=== PATIENT | male | born 2005 | race Caucasian/White ===

== ENCOUNTER 2024-09-28 14:22 | Emergency (ER) | payer MEDICAID, SELFPAY ==
[2024-09-28 14:41] VITALS: BP 149/92; PULSE 77; RESP 18; TEMP 36.8; O2SAT 99; BMI 23.4
--- NOTE | 2024-09-28 14:41 | EXP.UTC ---
Discharge Plan Disposition Patient Disposition: Home, Self-Care Condition: Good Prescriptions Prescriptions: New cyclobenzaprine 10 mg Tablet 10 mg PO BID PRN (Reason: Muscle Spasm) Qty: 20 0RF ibuprofen [IBU] 800 mg tablet 800 mg PO Q8HP PRN (Reason: Moderate Pain) Qty: 30 0RF Referrals Follow up/Referrals: Faraz Shannon [Primary Care Provider] - See instructions Activity Restrictions/Add. Instructions Additional Instructions/Restrictions: Go home and rest. It would be best if you rested tomorrow too. No heavy lifting & No twisting for the next few days. Take the oral medications as directed. The muscle relaxer (cyclobenzaprine--Flexeril) will make you drowsy, so don't drive or operate heavy machinery after taking it. Follow up with your regular doctor. GO TO THE ER FOR ANY WORSENING SYMPTOMS OR CONCERN, ESPECIALLY BOWEL OR BLADDER ISSUES, SADDLE AREA NUMBNESS, FEVER, ETC Clinical Impressions Clinical Impression: Low back pain, Fall Stand Alone Forms Stand Alone Forms: Work/School Release Instructions Patient Instructions: DI for Low Back Pain, Ibuprofen, Cyclobenzaprine Print Language Print Language: Hebrew Discharge ED Provider: Angel [facility] General Stated complaint: AO 09/26 1230 lower back pain Time Seen by Provider: 09/28/24 14:41 History of Present Illness Provider Complaint: He states that 2 days ago he slipped and fell backwards. He came down on his lower back and bottom. Since then he has had low back pain. He denies any bowel or bladder issues. He denies any numbness of his legs. He denies any other complaints or injury. Related Data Previous Rx's ?Medication ?Instructions ?Recorded cyclobenzaprine 10 mg tablet 10 mg PO BID PRN Muscle Spasm #20 09/28/24 tabs ibuprofen 800 mg tablet (IBU) 800 mg PO Q8HP PRN Moderate Pain 09/28/24 #30 tabs Allergies Allergy/AdvReac Type Severity Reaction Status Date / Time No Known Allergies Allergy Verified 09/28/24 14:46 [facility] Disclaimer: The information contained in this section may have been updated after the patient was seen, as this information can be updated by other users. Social History Smoking Status: Never smoker alcohol intake: never current occupational status: employed Travel in the last 8 weeks: None ROS Obtained: Yes All systems reviewed & no additional complaints except as documented Constitutional Constitutional: Denies chills, Denies fever(s), Denies headache(s) and Denies weakness Eyes Eyes: Denies eye discharge ENT Ears, Nose, Mouth, and Throat: Denies dizziness, Denies otalgia, Denies headache(s), Denies neck pain and Denies sore throat Cardiovascular Cardiovascular: Denies chest pain Respiratory Respiratory: Denies shortness of breath, Denies chest congestion, Denies cough, Denies stridor and Denies wheezing Gastrointestinal Gastrointestingal: Denies nausea or vomiting Musculoskeletal Musculoskeletal: Reports as per HPI, Denies abnormal gait, Reports back pain, Denies neck pain, Denies numbness and Denies tingling Integumentary/Breasts Skin/Breast: Denies rash Neurologic Neurologic: Denies abnormal gait, Denies dizziness, Denies focal weakness, Denies headache(s), Denies numbness, Denies paresthesias, Denies radicular pain, Denies sensory deficit, Denies tingling and Denies weakness Allergic/Immunologic Allergic/Immunologic: Denies wheezing Physical Exam General General appearance: alert and in no apparent distress Head Head exam: atraumatic, normocephalic and normal inspection Eye Eye exam: Present normal appearance, PERRL and EOMI ENT ENT exam: Present normal exam, normal oropharynx, mucous membranes moist, TM's normal bilaterally and normal external ear exam Neck Neck exam: Present normal inspection, full ROM and trachea midline; Absent meningismus or lymphadenopathy Chest Chest inspection: Present normal inspection and symmetric chest wall rise; Absent tenderness Respiratory Respiratory exam: Present normal lung sounds bilaterally; Absent respiratory distress Cardiovascular Cardiovascular exam: Present regular rate and normal rhythm; Absent JVD Abdominal Exam Abdominal exam: Present soft and normal bowel sounds; Absent distention, tenderness or guarding Extremities Exam Extremities exam: Present normal inspection, full ROM and normal capillary refill; Absent calf tenderness Back Exam Back exam: Present normal inspection and full ROM; Absent tenderness, CVA tenderness (R), CVA tenderness (L), muscle spasm, paraspinal tenderness, vertebral tenderness, rashes, sciatic notch tenderness (R), sciatic notch tenderness (L), straight leg raise (R) or straight leg raise (L) Neurological Exam Neurological exam: Present alert, oriented X3, CN II-XII intact, normal gait and reflexes normal; Absent motor sensory deficit Expanded Neurological Exam Speech: Present fluid speech Cranial nerves: Normal: EOM function (II, III, IV, ), facial sensation (V), facial palsy (VII), gag reflex (IX), spinal accessory function (XI) and tongue deviation (XII) Cerebellar function: Normal: heel to cisse Cerebellar function: normal gait Motor strength - LUE: 5/5 Motor strength - RUE: 5/5 Motor strength - LLE: 5/5 Motor strength - RLE: 5/5 Upper motor neuron exam: Normal: preston neglect and sensory extinction Sensory exam upper extremity: Normal: light touch and 2 point discrimination Sensory exam lower extremity: Normal: light touch and 2 point discrimination DTR: 2+: biceps (L), biceps (R), patellar (L), patellar (R), Achilles tendon (L) and Achilles tendon (R) Spinal cord function: Absent saddle anesthesia Psychiatric Psychiatric exam: Present normal affect and normal mood Skin Skin exam: Present warm, dry, intact and normal color Lymphatic Lymphatic Findings: no adenopathy Medical Decision Making Medical Records Medical records reviewed: No I reviewed the patient's medical records. Screening: Per USPSTF and CDC recommendations, given the prevalence of disease in our region, it is our hospital?s policy to screen for HIV and viral Hepatitis for all patients aged 18 and over and those with ongoing risk factors. Armen Inquiry Pt receiving controlled substance: No Radiology Data #1: Image(s): L-Spine Image Reviewed: Yes I reviewed the patient's radiology image and Yes I have reviewed radiologist's interpretation Preliminary Findings: No Fracture Seen Accession No. : [id number] Patient Name / ID : KATIE Emmanuel / [id number] Exam Date : 09/28/2024 15:05:03 ( Final ) Study Comment : Sex / Age : M / 19Y Creator : Miguelangel Fulton MD Dictator : Assembly Machine Offbearer : Marketing Information Analyst : Miguelangel Fulton MD Approver2 : Report Date : 09/28/2024 15:45:32 My Comment : FINAL REPORT CLINICAL HISTORY: fall, low back pain, coccyx pain COMPARISON: None FINDINGS: Three views of the lumbosacral spine were obtained. No fracture is identified. Disc spaces are well-preserved. Alignment is normal. IMPRESSION: Unremarkable lumbar spine series. Reviewed, Interpreted and Dictated by Nikhil Fulton MD Transcribed by Nusrat Nielson Authenticated and [facility]
--- NOTE | 2024-09-28 14:58 | XR_ITS ---
FINAL REPORT CLINICAL HISTORY: fall, low back pain, coccyx pain COMPARISON: None FINDINGS: Three views of the lumbosacral spine were obtained. No fracture is identified. Disc spaces are well-preserved. Alignment is normal. IMPRESSION: Unremarkable lumbar spine series. Reviewed, Interpreted and Dictated by Nikhil Fulton MD Transcribed by Nusrat Nielson Authenticated and [facility]
--- NOTE | 2024-09-28 14:58 | XR_ITS ---
FINAL REPORT CLINICAL HISTORY: fall, low back pain, coccyx pain COMPARISON: none FINDINGS: SACRUM COCCYX 2 views demonstrate no acute fracture or dislocation. The sacral arches are intact. The sacroiliac joints are unremarkable. No soft tissue abnormality is seen. IMPRESSION: No acute process. Reviewed, Interpreted and Dictated by Nikhil Fulton MD Transcribed by Nusrat Nielson Authenticated and [facility]
[2024-09-28 16:02] VITALS: BP 149/92; PULSE 77; RESP 18; TEMP 36.8
== END 2024-09-28 16:02 | disposition home or self-care (01) ==
PROVIDERS: Emergency Provider Nurse Practitioner Family; PCP Family Medicine
DX: M54.9 Dorsalgia, unspecified (principal)
CPT/HCPCS: 72100; 72220; 99213; G0381

== ENCOUNTER 2025-02-27 00:16 | Emergency (ER) | payer MEDICAID, SELFPAY ==
--- NOTE | 2025-02-27 00:16 | ECG_ITS ---
APPROVED REPORT Exam: Resting ECG HR:107 bpm ECG Measurements Heart Rate 107 AXES IL 144 P 61 QRSd 97 QRS 77 QT 319 T 62 QTc 382 Conclusion SINUS TACHYCARDIA POSSIBLE RIGHT VENTRICULAR CONDUCTION DELAY [RSR (QR) IN V1/V2] No STEMI Electronically signed by : TOSHIA PALOMARES, 02/28/2025 07:13:42
[2025-02-27 00:19] VITALS: BP 122/76; PULSE 99; RESP 18; TEMP 36.7; O2SAT 100; BMI 25.1
--- NOTE | 2025-02-27 00:28 | XR_ITS ---
PROCEDURE INFORMATION: Exam: XR Chest Exam date and time: 02/27/2025 12:38 AM Age: 20 years old Clinical indication: Pain; Chest pressure; Additional info: Chest pressure anxiety recently stopped caffeine TECHNIQUE: Imaging protocol: Radiologic exam of the chest. Views: 2 views. Total images: 2 COMPARISON: No relevant prior studies available. FINDINGS: Tubes, catheters and devices: EKG leads are present. Lungs: Nonspecific hyperinflation. No consolidation. No pulmonary vascular congestion or edema. Pleural spaces: Unremarkable. No pleural effusion. No pneumothorax. Heart/Mediastinum: Unremarkable. No cardiomegaly. No mediastinal widening or hilar enlargement. Bones/joints: Remote deformity distal right clavicle, status post ORIF. Minor degenerative changes midthoracic spine. IMPRESSION: 1. No radiographically acute cardiopulmonary process. 2. Nonspecific hyperinflation.
[2025-02-27 00:30] VITALS: BP 106/77; PULSE 87; RESP 11; O2SAT 99
[2025-02-27 00:34] LABS: Basophils # 0.1 K/mm3 (0-0.2); Basophils % 0.7 % (0.1-2.0); Eosinophils # 0.4 Kmm3 (0.0-0.4); Eosinophils % 3.5 % (0.1-12.0); Hematocrit 45.7 % (42.0-52.0); Hemoglobin 15.5 g/dL (14.1-18.0); Immature Granulocytes # 0.03 10^3uL; Immature Granulocytes % 0.3 %; Lymphocytes # 4.6 K/mm3 (0.7-4.5); Lymphocytes % 43.5 % (10-50); Mean Corpuscular HGB Conc 33.9 g/dL (31.8-35.4); Mean Corpuscular Hemoglobin 32.4 pg (27.0-31.2); Mean Corpuscular Volume 95.4 fl (80-94); Mean Platelet Volume 9.7 fl (7.4-10.4); Monocytes # 0.8 K/mm3 (0.1-1.0); Monocytes % 7.6 % (1.7-9.3); Neutrophils # 4.7 K/mm3 (1.8-7.8); Neutrophils % 44.4 % (37.0-80.0); Nucleated Red Blood Cells # 0 10^3/uL; Nucleated Red Blood Cells % 0 %; Platelet Count 258 K/mm3 (142-424); Red Blood Count 4.79 M/mm3 (4.60-6.20); Red Cell Distribution Width 12.6 % (11.5-17.5); Red Cell Distribution Width-SD 44.7 fL; White Blood Count 10.6 K/mm3 (4.8-10.8)
--- NOTE | 2025-02-27 00:34 | ED_ITS ---
Discharge Plan Disposition Patient Disposition: Home, Self-Care Condition: Good Prescriptions Prescriptions: No Action cyclobenzaprine 10 mg Tablet 10 mg PO BID PRN (Reason: Muscle Spasm) Qty: 20 0RF ibuprofen [IBU] 800 mg tablet 800 mg PO Q8HP PRN (Reason: Moderate Pain) Qty: 30 0RF Referrals Follow up/Referrals: Provider,Referral, [Primary Care Provider, Medical] - See instructions Activity Restrictions/Add. Instructions Additional Instructions/Restrictions: You were evaluated in the ER and are appropriate for discharge at this time. Call the cardiology office to make an appointment for outpatient follow-up in the next few days. Drink plenty of fluids but as discussed avoid caffeine. Also avoid alcohol. As discussed I recommend stopping nicotine products and smoking sooner rather than later for your overall health and wellbeing. I recommend avoiding all illicit substances. Follow-up with your primary care doctor. Return to the ER with any new, worsening, or otherwise concerning symptoms. Clinical Impressions Clinical Impression: Chest pain, Anxiety, Tobacco user Print Language Print Language: Sami Discharge ED Provider: Sherry Cardenas General Chief Complaint: Chest Pain Stated Complaint: chest pain Time Seen by Provider: 02/27/25 00:27 Mode of Arrival: Ambulatory Source of Information: Patient Description of Symptoms (Recalled from ER Triage Doc. by RN): 20M to ED with c/o chest pain X2 weeks. Pt reports his pain has been unbearable today, so he came to the ED tonight. Pt reports he was drinking energy drinks everyday but quit 1wk ago because they were making his chest hurt. Pt reports pain is 3/10, pressure in the left chest. Pt also reports numbness in the left hand. Pt took asa 81mg @1500 today, and shortly before arrival to ED. Pt reports the medication helped with his pain. History of Present Illness HPI narrative: Otherwise healthy 20-year-old male presents to the ER complaining of 2 weeks of chest pain. Patient states pain has been worse today so he came to the ER this evening to get checked out. Patient reports he was drinking red bowls every day for multiple years but quit 2 weeks ago because he started having weird chest complaints. He states for about a week he had headache but that went away but states he has continued to have chest pressure for the last 2 weeks. He reports the pressure sensation is also in his left upper extremity. He states he took aspirin around 3 PM today and then also prior to arrival in the ER. He states the aspirin does relieve his symptoms. He does not report any personal cardiac history, he states he smokes cigarettes and his smoking has increased since stopping caffeine but he does not use any marijuana or other illicit drugs. Patient denies any dizziness or nausea or vomiting. He has no pain anywhere, just the left-sided chest pressure. No history of blood clot. Related Data Previous Rx's ?Medication ?Instructions ?Recorded cyclobenzaprine 10 mg tablet 10 mg PO BID PRN Muscle S pasm #20 09/28/24 tabs ibuprofen 800 mg tablet (IBU) 800 mg PO Q8HP PRN Moder ate Pain 09/28/24 #30 tabs Allergies Allergy/AdvReac Type Severity Reaction Status Date / Time No Known Allergies Allergy Verified 09/28/24 14:46 [facility] Disclaimer: The information contained in this section may have been updated after the patient was seen, as this information can be updated by other users. Social History (Updated 09/28/24 @ 20:29 by Angel Gonzales APRN) Smoking Status: Current every day smoker alcohol intake: never current occupational status: employed Travel in the last 8 weeks?: None ROS Obtained: Yes Systems reviewed as appropriate & no additional complaints except as documented per HPI Physical Exam General General appearance: alert and in no apparent distress Comment: Anxious but not in distress Head Head exam: atraumatic and normocephalic Eye Eye exam: Present PERRL and EOMI ENT ENT exam: Present mucous membranes moist Neck Neck exam: Present normal inspection and full ROM Chest Chest inspection: Present symmetric chest wall rise; Absent tenderness Respiratory Respiratory exam: Present normal lung sounds bilaterally; Absent respiratory distress, wheezes or stridor Cardiovascular Cardiovascular exam: Present regular rate (Heart rate 91 during exam) and normal rhythm Abdominal Exam Abdominal exam: Present soft; Absent distention or tenderness Extremities Exam Extremities exam: Present full ROM; Absent edema Neurological Exam Neurological exam: Present alert and oriented X3; Absent motor sensory deficit Psychiatric Psychiatric exam: Present anxious (But not agitated. Able to be redirected) Skin Skin exam: Present warm and dry HEART Score HEART Score HEART Score assessment performed?: Yes History (anamnesis): Slightly suspicious ECG: Normal Age: <45 years Risk factors: 1-2 risk factors Troponin: </= normal limit HEART Score: 1 Critical Care Critical Care Time Critical Care Time: No Medical Decision Making Medical Records Medical records reviewed: Yes I reviewed the patient's medical records. Armen Inquiry Pt receiving controlled substance: No Vital Signs Vital Signs: 02/27/25 00:19 02/27/25 00:19 02/27/25 00:30 Temperature 98.1 F Temperature Source Oral Pulse Rate 99 H 87 Pulse Rate [Apical] 99 H Respiratory Rate 18 11 L Blood Pressure 106/77 L Blood Pressure [Right Arm] 122/76 Blood Pressure Mean [Right Arm] 91 Blood Pressure Source [Right Arm] Automatic Cuff Blood Pressure Position [Right Arm] Sitting 02 Sat by Pulse Oximetry 100 99 Oxygen Delivery Method Room Air Lab Data Labs: Lab Results 02/27/25 00:18: WBC 10.6, RBC 4.79, Hgb 15.5, Hct 45.7, MCV 95.4 H, MCH 32.4 H, MCHC 33.9, RDW 12.6, Plt Count 258, MPV 9.7, Neut % (Auto) 44.4, Lymph % (Auto) 43.5, Aurora % (Auto) 7.6, Eos % (Auto) 3.5, Baso % (Auto) 0.7, Neut # (Auto) 4.7, Lymph # (Auto) 4.6 H, Aurora # (Auto) 0.8, Eos # (Auto) 0.4, Baso # (Auto) 0.1, D- Dimer 0.35, Sodium 139, Potassium 3.6, Chloride 106, Carbon Dioxide 27, Anion Gap 9.6, BUN 12, Creatinine 0.80, Estimated Creat Clear 158, Estimated GFR 121, Est GFR ( Amer) 146, Glucose 103 H, Calcium 9.6, Total Bilirubin 0.6, AST 50, ALT 36, Alkaline Phosphatase 71, Total Protein 8.1, Albumin 4.8, Globulin 3.3 H, Albumin/Globulin Ratio 1.5 02/27/25 00:18 02/27/25 00:18 Response Orders (Tests/Meds): ED MEDICATIONS Generic Name Dose Route Start Last Admin Trade Name Freq PRN Reason Stop Dose Admin Lactated Ringer's 1,000 mls @ 999 mls/hr 02/27/25 00:28 02/27/25 00:40 Lactated Ringer's 1000 Ml Bag IV 02/27/25 01:28 999 mls/hr .Q1H1M ONE Administration Discontinued Medications Generic Name Dose Route Start Last Admin Trade Name Deion PRN Reason Stop Dose Admin Aspirin 162 mg 02/27/25 00:28 02/27/25 00:40 Aspirin 81mg Chewable Tablet PO 02/27/25 00:29 162 mg ONCE ONE Administration ORDERS Category Date Time Status XR chest 2V Stat Exams 02/27/25 00:28 Ordered Complete Blood Count Auto Diff Stat Lab 02/27/25 00:18 Completed Comprehensive Metabolic Panel Stat Lab 02/27/25 00:18 Results D-Dimer Stat Lab 02/27/25 00:18 Completed HIV Combo Stat Lab 02/27/25 00:18 Received Hepatitis C Ab Qual. W/ RFX Stat Lab 02/27/25 00:18 Received NT Pro Brain Natriuretic Pep. Stat Lab 02/27/25 00:18 Results Troponin I Q3H Lab 02/27/25 03:30 Ordered Troponin I Q3H Lab 02/27/25 06:30 Ordered Troponin I Stat Lab 02/27/25 00:18 Results MDM Narrative Medical Decision Narrative: In summary, this 20-year-old male presents to the emergency department today with chest pressure in the left chest since stopping caffeine 2 weeks ago. On initial evaluation patient is hemodynamically stable, afebrile, GCS 15, no neurologic deficits, cardiopulmonary exam benign, patient is anxious but able to be redirected. His heart rate goes up when he starts talking about how worried he is about what it could be, when I reassured him that his EKG looks good and I believe a lot of his symptoms are related to stopping caffeine, increased nicotine use, and anxiety, his heart rate immediately goes back down. He is easily reassured.. Differential diagnosis includes but is not limited to anxiety, caffeine withdrawal, increased nicotine use, I did consider ACS or PE but consider these to be less likely given the situation. Based on these concerns, I ordered serum labs, cardiac workup. ECG personally interpreted demonstrates sinus tachycardia, rate 107, normal axis, normal AK and QTc, no STEMI. Patient received IV fluids, aspirin for treatment. Labs personally reviewed demonstrate no leukocytosis or anemia, platelets normal, dimer 0.35, by years criteria PE is excluded. CMP nonactionable, initial troponin undetectably low less than 0.01. I do not believe serial troponins are indicated at this time since patient has had pain for 2 weeks and if it was cardiac in etiology I would expect the troponin to be elevated. He also has a reassuring, nonischemic ECG. Chest x-ray personally interpreted does not demonstrate acute intrathoracic abnormality, see radiology read for final interpretation. On reassessment patient's heart rate is significantly improved down to the 70s, he is much more relaxed and is asymptomatic. I believe he is appropriate for discharge at this time. He was given referral to cardiology for outpatient reassessment. Prior to discharge I counseled the patient on smoking cessation. He is determined to make a change and is ready to start reducing his intake with a goal of stopping. He is not yet ready to quit today. Discussed risks of continuing as well as benefits of cessation and resources for cessation. In total, discussion was between 8 and 10 minutes. Patient was given instructions on symptomatic management, follow up instructions, and return precautions for the emergency department. Patient indicated understanding and was discharged in stable condition.
[2025-02-27] MEDS: ASPIRIN 81MG CHEWABLE TABLET 162 MG PO (00:40)
[2025-02-27] MEDS: LACTATED RINGERS 1000ML 1,000 ML 999 ML IV (00:40)
[2025-02-27 00:42] LABS: Alanine Aminotransferase 36 U/L (12-78); Albumin Level 4.8 g/dl (3.5-5.0); Albumin/Globulin Ratio 1.5 (1.1-1.8); Alkaline Phosphatase 71 U/L (38-126); Anion Gap 9.6 mEq/L (5-15); Aspartate Amino Transferase 50 U/L (17-59); Bilirubin,Total 0.6 mg/dl (0.2-1.3); Blood Urea Nitrogen 12 mg/dl (9-20); Calcium 9.6 mg/dl (8.4-10.2); Carbon Dioxide 27 mmol/L (22.0-30.0); Chloride 106 mmol/L (98-107); Creatinine Clearance Estimated 158 mL/min (50-200); Estimated Glomerular Filt Rate 121 ml/min (>60); GFR (African American) 146 ML/MIN (>60); Globulin 3.3 g/dL (1.3-3.2); Glucose 103 mg/dl (74-100); Potassium 3.6 mmoL/L (3.5-5.1); Sodium 139 mmol/L (136-145); Total Protein,Serum 8.1 g/dl (6.3-8.2)
[2025-02-27 00:47] LABS: D-Dimer 0.35 ug/mL (0.0-0.5)
[2025-02-27 00:55] LABS: NT Pro Brain Natriuretic Pep. 105 pg/mL (0-125)
[2025-02-27 00:58] LABS: Troponin I < 0.01 ng/ml (0.00-0.034)
[2025-02-27 01:11] VITALS: BP 118/69; PULSE 84; RESP 16; TEMP 36.7; O2SAT 95
[2025-02-27 01:57] LABS: Hepatitis C Ab Qual. W/ RFX NEGATIVE (Negative)
[2025-02-27 02:01] LABS: HIV Combo NEGATIVE (Negative)
== END 2025-02-27 01:13 | disposition home or self-care (01) ==
PROVIDERS: Emergency Provider Emergency Medicine
DX: R07.9 Chest pain, unspecified (principal); F41.9 Anxiety disorder, unspecified; F17.210 Nicotine dependence, cigarettes, uncomplicated; Z11.59 Encounter for screening for other viral diseases; Z11.4 Encounter for screening for human immunodeficiency virus [HIV]
CPT/HCPCS: 71046; 80053; 80074; 83880; 84484; 85025; 85378; 87389; 93005; 96360; 99284; J7120

== ENCOUNTER 2025-04-10 16:36 | Emergency (ER) | payer MEDICAID, SELFPAY ==
--- OUTSIDE RECORDS SUMMARY | 2025-04-10 16:49 | XMS_ITS | Continuity of Care Document ---
Author Organization [facility] Address [address] [place] [address] Phone Care Team Providers Care Railway Equipment Operator Name Role Phone Faraz Shannon DO Primary Care Provider [phone] Encounters Date Type Department Care Team Description 11/20/2024 Telephone [facility] [address] [place] [address] Anuj Dangelo MD Surgery (Canceled Shoulder Surgery) 11/15/2024 1:30 PM EST Office Visit [facility] [address] [address] Khari Marcelino MD Chest pain, unspecified type (Primary Dx); SOB (shortness of breath) 11/14/2024 11:59 PM EST Anest[facility] Event [facility] [address] [place] [id number] Iraj Yu MD 11/14/2024 Travel 11/01/2024 Orders Only [facility] [address] [address] Anuj Dangelo MD Right shoulder pain, unspecified chronicity (Primary Dx) 10/31/2024 1:20 PM EST Ancillary Procedure [address] [address] Chica Mendez PA Right shoulder pain, unspecified chronicity 10/31/2024 2:00 PM EST Office Visit [address] [address] Chica Mendez PA Right shoulder pain, unspecified chronicity (Primary Dx); Pain from implanted hardware, initial encounter 10/11/[address] [address] Husam Xiong, Outdoor Landscape Architect Schedule Appointment; Referral 10/09/2024 2:00 PM EST Office Visit [facility] [address] [place] [address] Mirtha, Faraz, DO Annual physical exam (Primary Dx); Chronic right shoulder pain; Gastroesophageal reflux disease, unspecified whether esophagitis present 07/21/2024 2:45 PM EST Office Visit [facility] [address] [place] [address] Mirtha, Faraz, DO Annual physical exam (Primary Dx); Dental caries 01/29/2021 Patient Outreach [facility] [address] [place] [address] Ngoc Kimball APRN Central Patient Navigator Outreach (annual wellness visit) 01/24/2021 Telephone [place] [phone] Anuj Dangelo MD Other (appt) 03/07/2020 Patient Outreach [facility] [address] [place] [address] Justin Kelley, BA, COS ED Follow-Up Call; ED Follow-Up Call 03/06/2020 Telephone [facility] [address] [place] [address] Ngoc Kimball APRN Referral (umbilical hernia) 03/06/2020 Travel 03/06/2020 12:25 AM EDT - 03/06/2020 1:12 AM EDT Emergency . [facility] [address] [place] [address] Dorian Canales MD Umbilical hernia without obstruction and without gangrene (Primary Dx); Sebaceous cyst Discharge Disposition: Home or Self Care 01/15/2020 Telephone [place] [address] [place] [address] Ngoc Kimball APRN Medication Management (PA ON vilazodone 10 mg (7)- 20 mg (23) Oral Tablets, Dose Pack; Take 20 mg by mouth daily. Take as directed Dispense: 30 Tab; Refill: 0) 01/08/2020 Travel 01/05/2020 Travel 01/05/2020 3:00 PM EDT Telemedicine [place] [address] [place] [address] Ngoc Kimball APRN Generalized anxiety disorder (Primary Dx); Moderate major depression (HCC); Paranoia (HCC) 01/01/2020 Travel 12/18/2019 Travel 12/15/2019 Travel 11/30/2019 4:00 PM EDT Telemedicine [place] [address] [place] [address] Ngoc Kimball APRN Acute bacterial sinusitis (Primary Dx) 11/30/2019 Telephone [facility] [address] [place] [address] Ngoc Kimball APRN Other (Nurse Triage) 11/30/2019 Travel 11/22/2019 11:40 AM EDT Ancillary Procedure [facility] [address] [place] [address] Anuj Dangelo MD 11/22/2019 Travel 11/22/2019 12:45 PM EDT - 11/22/2019 2:45 PM EDT Surgery [facility] [address] [place] [address] Anuj Dangelo MD SHOULDER BURDEN ENGEL / CORACOCLAVICULAR LIGAMENT RECONSTRUCTION 11/22/2019 1:39 PM EDT Anesthesia Event [facility] [place] [address] [facility] [address] [place] [address] Juan Manuel Patino MD Nayak, Prashant, MD 11/22/2019 10:58 AM EDT - 11/22/2019 4:45 PM EDT [facility] [place] [phone] [facility] [address] [place] [address] Anuj Dangelo MD Discharge Disposition: Home or Self Care 11/21/2019 Travel 11/17/2019 Refill [facility] [place] [address] [place] [address] Ngoc Kimball APRN Medication Refill 11/17/2019 Travel 11/07/2019 Patient Outreach [facility] [address] [place] Appointment Location [place] [address] Tania Lee MSW ED Follow-Up Call; Care Management - Chart Review 11/07/2019 Patient Outreach [facility] [address] [place] [phone] Urvashi Dan BA, COS Care Management - Chart Review 11/07/2019 Travel 11/07/2019 9:00 AM EST Office Visit [facility] [address] [place] [address] Ngoc Kimball APRN Moderate major depression (HCC) (Primary Dx); History of drug use; Paranoia (HCC) 11/06/2019 2:36 AM EST - 11/06/2019 4:26 AM EST Emergency [facility] [address] [place] [address] Alfonzo Calles MD Methamphetamine abuse (HCC) (Primary Dx); Deliberate self-cutting Discharge Disposition: Home or Self Care 10/30/2019 2:00 PM EST Office Visit [facility] [address] [place] [address] Ngoc Kimball APRN Moderate major depression (HCC) (Primary Dx); Generalized anxiety disorder 10/27/2019 Travel 10/26/2019 Travel 10/26/[address] [place] [address] Ngoc Kimball APRN Medication Problem (discontinued Prozac) 10/18/2019 8:00 AM EST Office Visit [address] [place] [address] Ngoc Kimball APRN History of drug use (Primary Dx); Exposure to STD; H/O elevated lipids; Need for hepatitis C screening test; Screening for diabetes mellitus; Personal history of nicotine dependence; Insomnia, persistent; Screening for deficiency anemia 07/21/[address] [place] [address] Ngoc Kimball APRN Symptom Call (still sick/ seen / sore throat / cough) 07/12/2019 10:40 AM EDT Office Visit [address] [place] [address] Copper MountainSu mccurdy APRN Sinobronchitis (Primary Dx) 07/11/[address] [place] [address] Ngoc Kimball APRN Appointment Needed (Acute) 07/10/[address] [place] [address] Ngoc Kimball APRN Appointment Needed (anger mgmt/depression/anxiet y ) 07/07/[address] [place] [address] Ngoc Kimball APRN Drug / Alcohol Assessment (drug test) 07/04/2019 8:36 AM EDT - 07/04/2019 11:59 PM EDT Hospital Encounter [facility] MRI [address] [place] [address] Brady Mathias MD Acute pain of right shoulder Discharge Disposition: Home or Self Care 06/13/2019 2:20 PM EDT Office Visit [facility] [address] [place] [address] Ngoc Kimball APRN Establishing care with new doctor, encounter for (Primary Dx); History of drug use; Need for vaccination; Insomnia, persistent 03/28/2019 8:45 AM EDT Office Visit [facility] [address] [place] [address] Tonia Sorensen MD Encounter for routine child health examination without abnormal findings (Primary Dx); Insomnia, persistent 03/08/2019 Telephone [facility] [address] [place] [address] [address] [place] [address] St Kathy Graf 11/26/2017 8:10 AM EDT Office Visit [facility] [address] [place] [address] [address] [place] [address] Ellen Perez MD Well adolescent visit (Primary Dx); Depression screening; Exercise counseling; Encounter for dietary counseling and surveillance; Abscess of back, except buttock 08/23/2017 Patient Outreach [facility] [address] [place] [address] [address] [place] [address] Ana Greco RN ED Follow-Up Call 08/19/2017 11:02 PM EST - 08/20/2017 2:23 AM [facility] Emergency [facility] [address] 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 [place] [address] Physician, *[facility] 10/31/2010 Telephone [facility] [address] [place] [address] Physician, *[facility] Immunization Record 09/28/2009 4:12 PM EST - 09/28/2009 4:25 PM EST Emergency [facility] Lito Cuenca MD 05/12/2009 10:37 AM EDT - 05/12/2009 12:42 PM EDT Emergency [facility] EPIC CON UNK [facility]G Physicians, [facility] Emergency Adrian Jones MD 12/02/2007 3:47 PM EDT - 12/02/2007 5:28 PM EDT Emergency [facility] Generic, Historical Provider 06/19/2004 8:26 PM EDT - 06/19/2004 9:40 PM EDT Emergency [facility] Generic, Historical Provider 2003 5:05 PM EST - 2003 5:45 PM EST Emergency [facility] Generic, Historical Provider 2003 2:37 PM EDT - 2003 3:35 PM EDT Emergency [facility] Generic, Historical Provider 2003 1:02 PM EDT - 2003 2:00 PM EDT Hospital Encounter [facility] Generic, Historical Provider Allergies Active Allergy Reactions Criticality Noted Date Comments Bleach (Sodium Hypochlorite) Shortness Of Breath 10/09/2024 Medications omeprazole (PRILOSEC) 40 mg Oral Capsule, Delayed Release(E.C.)Ind ications:Gastroe sophageal reflux disease, unspecified whether esophagitis present Take 1 Capsule by mouth daily. 30 Capsule 3 10/09/2024 Active Active Problems Patient Care Coordination No te Formatting of this note migh t be different from the original. REGISTRY UPDATED Problem Noted Date Diagnosed Date Right shoulder pain 11/01/2024 Cigarette nicotine dependence without complicati on 01/08/2020 Cannabis dependence 11/20/2019 Substance induced mood disorder 11/20/2019 Methamphetamine dependence 11/20/2019 Paranoia 11/07/2019 Moderate major depression 10/30/2019 Generalized anxiety disorder 10/30/2019 Personal history of nicotine dependence 10/18/19 20 H/O elevated lipids 10/18/2019 History of drug use 06/13/2019 Overview (06/13/2019): previously used meth and weed and pain meds. Went to drug rehab and has been clean since February 2019 Insomnia, persistent 06/13/2019 Immunizations Immunization Administration Dates Next Due DTaP 01/12/2008, 4,01/23/2004,06/11,2003 HPV 9 Valent 06/13/2019,06/07/2015 Hepatitis A, Ped/Adol, 2 Dose 11/12/2017, 015 Hepatitis B, Unspecified Formulation 01/23/2004, 2003,2003 HiB, Unspecified Formulation 06/12/2004,06/11/20 03,2003 IPV 01/12/2008, 4,2003,04/11 Influenza Nasal, Unspecified Formulation 06/10/2012 Influenza Vaccine Quadrivalent 06/07/2015 LAST MANUFACTURED 2010-Pneum ococcal Conjugate 7 Valent 08/12/2004,2003,2003 MMR 11/16/2017,06/12/2004 Meningococcal Conjugate 03/28/2019 Meningococcal MCV4, Unspecif ied Formulation 06/07/2015 Tdap 08/20/2017,06/07/2015 Varicella 01/12/2008,06/12/2004 Family History Medical History Relation Name Comments Heart Disease Father Substance Abuse Father Heart Disease Maternal Grandmother Substance Abuse Mother Anesth Problems Neg Hx Relation Name Status Comments Father Alive Maternal Grandmother Mother Alive Social History Smoking Status as of 04/10/2025 Tobacco Use Types Packs/Day Years Used Date Smoking Tobacco: Never Assessed AUDIT-C Answer Date Recorded Frequency of Alcohol Consumption Never 06/13/2019 Average Number of Drinks Not on file 019 Frequency of Binge Drinking Not on file 09/2018 PHQ-2 Answer Date Recorded PHQ-2 Total Score 0 10/09/2024 Sex and Gender Information Value Date Recorded Sex Assigned at Not on file Legal Sex Male 9:42 PM EDT Gender Identity Not on file Sexual Orientation Not on file Last Filed Vital Signs Vital Sign Reading Time Taken Comments Blood Pressure 132/80 11/15/2024 1:35 PM EST Pulse 76 11/15/2024 1:35 PM EST Temperature 36.8 C (98.2 F) 10/09/2024 2:23 PM EST Respiratory Rate 16 03/06/2020 12:25 AM EDT Oxygen Saturation 100% 03/06/2020 12:25 AM EDT Inhaled Oxygen Concentration - - Weight 72.1 kg (159 lb) 11/15/2024 1:35 PM EST Height 175.3 cm (5' 9 ) 11/15/2024 1:35 PM EST Body Mass Index 23.48 11/15/2024 1:35 PM EST Plan of Treatment Not on file Medical Devices Implanted Type Area Gift Shop Clerk Device Identifier Shelf Expiration Date Model / Serial / Lot Allograft Frozen Fresh Tibialis Posterior - [id number] Implanted:Qty : 1 on 11/22/2019 by Anuj Dangelo MD at [facility] Right: Clavicle MUSCULOSKELETAL TRANSPLANT FND 01/20/2022 [id number] / [id number] / Screw Tenodesis Peek 5.5mm X 10mm - [id number] Implanted:Qty : 2 on 11/22/2019 by Anuj Dangelo MD at [facility] Right: Clavicle ARTHREX 07/13/2024 [id number] -10 / / [id number] Plate Hook 7 Hole/ 12mm /Right - [id number] Implanted:Qty : 1 on 11/22/2019 by Anuj Dangelo MD at [facility] Right: Clavicle ALFREDO:ORTHOPEDICS 01/11/2024 [id number] / / [id number] Screw Bone Full Thread T10 3.5mm X L16mm - [id number] Implanted:Qty : 3 on 11/22/2019 by Anuj Dangelo MD at [facility] Right: Clavicle ALFREDO:ORTHOPEDICS [id number] / / Procedures Procedure Name Priority Date/Time Associated Diagnosis Comments POCT EKG Routine 11/15/2024 1:39 PM EST Chest pain, unspecified type XR SHOULDER RIGHT 4 VIEWS Routine 10/31/2024 1:56 PM EST Right shoulder pain, unspecified chronicity SCANNED RHYTHM STRIPS 11/24/2019 12:47 AM EDT INTRAOP AIRWAY PLACEMENT Routine 11/22/2019 2:17 PM EDT SHOULDER BURDEN ENGEL / CORACOCLAVICULAR LIGAMENT RECONSTRUCTION 11/22/2019 1:39 PM EDT Dislocation of right acromioclavicular joint with greater than 200% displacement, initial encounter Special Needs SEMI TENDINOSUOUS AUTOGRAFT, TENET TABLE, BEACH CHAIR, MINI CI ARM, FIBER LOOP, ARTHREX cc LIGAMENT RECON, ARTHREX 5.0 mm x 10 BIO TENODESIS SCREWS, BIO SWIVEL LOCKS, ARTHREX CURVED SUTURE PASSER, HAMSTRING ALLOGRAFT, 0+2-0 VICRYL, 4-0 MONOCRYL, STERI ST RIPS, 4x4'S, ABD, COVER ALL WITH TAPE, GENERAL, SCALENE (ARTHREX, MTF, AND ALFREDO REPS NOTIFIED 11/14 - AB) PERIPHERAL BLOCK Routine 11/22/2019 12:21 PM EDT US ANES GUIDANCE FOR NERVE BLOCK [facility] 11/22/2019 11:36 AM EDT DRUGS OF ABUSE, SCREEN ONLY, URINE STAT 11/06/2019 3:29 AM EST ACETAMINOPHEN LEVEL STAT 11/06/2019 3:24 AM EST SALICYLATE LEVEL STAT 11/06/2019 3:24 AM EST ALCOHOL MEDICAL STAT 11/06/2019 3:24 AM EST COMPREHENSIVE METABOLIC PANEL STAT 11/06/2019 3:24 AM EST CBC WITH DIFF STAT 11/06/2019 3:24 AM EST SYPHILIS SCREEN WITH REFLEX RPR QUANT Routine 10/18/2019 9:11 AM EST History of drug use Exposure to STD HIV AG/AB Routine 10/18/2019 9:11 AM EST History of drug use Exposure to STD HCV ANTIBODY SCREEN W/ REFLEX Routine 10/18/2019 9:11 AM EST History of drug use Need for hepatitis C screening test LIPID SCREEN Routine 10/18/2019 9:11 AM EST History of drug use H/O elevated lipids CBC WITH DIFF Routine 10/18/2019 9:11 AM EST History of drug use Screening for deficiency anemia COMPREHENSIVE METABOLIC PANEL Routine 10/18/2019 9:11 AM EST History of drug use Exposure to STD H/O elevated lipids Screening for diabetes mellitus CHLAMYDIA/GC BY TMA Routine 10/18/2019 9:11 AM EST History of drug use Exposure to STD TRICHOMONAS VAGINALIS BY TMA Routine 10/18/2019 9:11 AM EST History of drug use Exposure to STD CHLAMYDIA/GC Routine 10/18/2019 9:11 AM EST History of drug use Exposure to STD MRI SHOULDER RIGHT WO CONTRAST Routine 07/04/2019 9:18 AM EDT Acute pain of right shoulder CHLAMYDIA/GC BY TMA Routine 11/26/2017 10:16 AM EDT Well adolescent visit CHLAMYDIA/GC Routine 11/26/2017 10:16 AM EDT Well adolescent visit WOUND CULTURE (STAIN INCLUDED) STAT 08/20/2017 1:[address] ABD PEL ED FAST W CONTRAST STAT 08/20/2017 1:12 AM EST DIFFERENTIAL Routine 08/19/2017 11:47 PM EST CBC WITH DIFF STAT 08/19/2017 11:47 PM EST BASIC METABOLIC PANEL STAT 08/19/2017 11:47 PM EST Results * POCT EKG (11/15/2024 1:39 PM EST) 11/15/2024 1:39 PM EST Impressions [facility] OFFICE - 11/15/2024 1:39 PM EST NSR us Khari Marcelino MD POINT OF CARE CARDIOLOGY F inal Result [facility] OFFICE * XR SHOULDER RIGHT 4 VIEWS (10/31/2024 1:56 PM EST) Narrative Genericuser, Audit - 10/31/2024 1:56 PM EST Please see physician's note from office encounter for x-ray imaging result us Chica NAVARRO IMG DIAGNOSTIC IMAGING ORDERABL ES Final Result * SCANNED RHYTHM STRIPS (11/24/2019 12:47 AM EDT) Anatomical Region Laterality Modality Other 11/24/2019 12:4 7 AM EDT us Unknown Unknown IMG ECG ORDERABLES Final Result * INTRAOP AIRWAY PLACEMENT (11/22/2019 2:17 PM EDT) Narrative [facility] - 11/22/2019 2:17 PM EDT Angel Wong CRNA 11/22/2019 2:18 PM Intraop Airway Placement: Date/Time: 11/22/2019 1:44 PM Induction type: IV Mask size: Standard adult Mask ventilation: Easy mask ventilation Mask ventilation improved by: Jenni Laryngoscope blade: Maryann Blade size: 4 Grade view: I Airway type: ETT- cuffed Topical Anesthetic/Lubricant: LTA 4% Lidocaine Intubation assist devices: Stylet 14fr Airway location: Oral Device size: 7.5mm Secured at: 22 cm Secured by: Tape Measured from: Lips Placement verified: Auscultation and End tidal CO2 Condition: Atraumatic and Unchanged Insertion attempts: 1 Attempt 1 by: james Title: LOCOMOTIVE CRANE OPERATOR us Juan Manuel Patino MD IA ANESTHESIA Final Result [facility] [address] [place] [id number] * Peripheral Block by Anesthesia (11/22/2019 12:21 PM EDT) Narrative [facility] - 11/22/2019 12:21 PM EDT Juan Manuel Patino MD 11/22/2019 12:21 PM Peripheral Block by Anesthesia Procedure Date/Time: 11/22/2019 12:18 PM Patient location during procedure: pre-op Reason for block: at surgeon's request and post-op pain management Staff and Pre-procedure checks Anesthesiologist: Juan Manuel Patino MD Performed: anesthesiologist Preanesthetic Checklist: Allergies confirmed, Block plan confirmed, Necessary block equipment present, Supplemental O2 applied, if needed, Anticoagulant confirmed, Block site marked, Patient identified- 2 criteria, Surgical procedure consent verified, Aseptic technique used, Drug/solution labeled, Resuscitaion equipment available, ALDAIR recommended monitors applied, IV access functioning and Sedation given, if needed Immediate perianesthetic assessment completed: Yes Patient position: Prep: Chloraprep Monitoring: Mental status assessed, O2 Sat and EKG Peripheral Block Block type: Interscalene Block Laterality: Right Injection technique: single-shot Medication: 20ml, Bupivacaine 0.5% and Exparel 1.33% Needle Needle type: Stimuplex Needle gauge: 21 G Needle length: 2 in (50mm) Nerve localization: ultrasound guidance (Interscalene block- Anterior Scalene and Middle Scalene, upper, middle and lower trunks of the brachial plexus are identified; the tip of the needle and the spread of the local anesthetic around the Brachial Plexus are visualized. ) Ultrasound probe: linear Ultrasound needle approach: in-plane Assessment Block success: a full evaluation pending Events: Uneventful Heart rate change: no Blood aspirated: no Paresthesia pain: none Resistance on injection: normal Intermittent incremental injection LA at 5ml LA surrounding nerve by ultrasonographc visualization us Juan Manuel Patnio MD ANESTHESIA ORDERABLES Final Result [facility] [address] [place] [address] * US ANES GUIDANCE FOR NERVE BLOCK (11/22/2019 11:36 AM EDT) Narrative Genericuser, Audit - 11/22/2019 11:36 AM EDT Ultrasound guided nerve block performed by Anesthesiologist The study image(s) are for reference only and will not be interpreted by a Radiologist. Refer to the Anesthesia procedure note for image description and procedure details. us Juan Manuel Patino MD IMG US ORDERABLES Final Resu lt * (ABNORMAL) DRUGS OF ABUSE, SCREEN ONLY, URINE (11/06/2019 3:29 AM EST) [facility] Signature 6 AM (Heroin) Absent Cutoff 10 ng/mL 11/06/2019 3:52 AM EST [facility] Amphetamines Presumptive Pos(A) Cutoff 500 ng/mL 11/06/2019 3:52 AM EST [facility] Barbiturates Absent Cutoff 200 ng/mL 11/06/2019 3:52 AM EST [facility] Benzodiazepines Absent Cutoff 200 ng/mL 11/06/2019 3:52 AM EST [facility] Buprenorphine Absent Cutoff 5 ng/mL 11/06/2019 3:52 AM EST [facility] Cannabinoid Metabolite Presumptive Pos(A) Cutoff 50 ng/mL 11/06/2019 3:52 AM EST [facility] Cocaine Metabolite Absent Cutoff 150 ng/mL 11/06/2019 3:52 AM EST [facility] Methadone and Metabolite Absent Cutoff 300 ng/mL 11/06/2019 3:52 AM [facility] Opiate Absent Cutoff 300 ng/mL 11/06/2019 3:52 AM EST [facility] Oxycodone Lvl Absent Cutoff 100 ng/mL 11/06/2019 3:52 AM EST [facility] Phencyclidine Absent Cutoff 25 ng/mL 11/06/2019 3:52 AM EST [facility] Creatinine Ur >25.0 mg/dL 11/06/2019 3:52 AM EST [facility] Comment: Greater than 20: Consistent with valid sample Greater than 2 but less than 20: Possible dilution Less than 2: Questionable valid sample Urine STRUCTURE OF URINARY TRACT PROPER / Unknown 11/06/2019 3:29 AM EST 11/06/2019 3:29 AM EST Narrative [facility] [place] [facility] - 11/06/2019 3:52 AM EST These drug classes have been qualitatively screened by immunoassay and are for medical purposes only. Results reported as presumptive positive have not been confirmed. If results don t reflect the clinical picture, the prescribed medication, or the discussion with the patient, confirmation testing is recommended on the ORIGINAL urine. All urine specimens for drug testing are held for 7 days. If confirmation testing is desired, call the Lab [facility]. Due to possible factors, such as, dilute/adulterated urine, concentration of drug/metabolite being below the cut-off, or antibody specificity of test reagent, a negative result does not rule out drug use. These results are only valid for urine specimens. Any contamination with vaginal pool/amniotic fluid could cause erroneous results. Alfonzo Calles MD URINE ORDERABLES Final Result [facility] [place] [facility] [address] [place] [address] * (ABNORMAL) CBC WITH DIFF (11/06/2019 3:24 AM EST) Only the most recent of3 resultswithin the time period is included. WBC 13.8(H) 4.0 - 11.0 x10(3)/mcL 11/06/2019 3:30 AM [facility] [place] [facility] RBC 5.43 4.30 - 5.81 x10(6)/mcL 11/06/2019 3:30 AM [facility] Hgb 17.4(H) 13.5 - 17.1 g/dL 11/06/2019 3:30 AM [facility] Hct 51.5 38.9 - 51.6 % 11/06/2019 3:30 AM [facility] MCV 94.8 82.5 - 99.8 fL 11/06/2019 3:30 AM EST [facility] MCH 32.0 27.0 - 34.3 pg 11/06/2019 3:30 AM EST [facility] MCHC 33.8 32.1 - 35.3 g/dL 11/06/2019 3:30 AM EST [facility] RDW 13.3 11.5 - 15.0 % 11/06/2019 3:30 AM EST [facility] Platelet 298 144 - 423 x10(3)/mcL 11/06/2019 3:30 AM EST [facility] MPV 8.0 6.8 - 10.8 fL 11/06/2019 3:30 AM EST [facility] Neut Percent 70.1 % 11/06/2019 3:30 AM EST [facility] Lymph Percent 22.1 % 11/06/2019 3:30 AM [facility] [place] Percent 6.9 % 11/06/2019 3:30 AM EST [facility] Eos Percent 0.5 % 11/06/2019 3:30 AM EST [facility] Baso Percent 0.4 % 11/06/2019 3:30 AM EST [facility] Neut # 9.7(H) 1.8 - 7.7 x10(3)/mcL 11/06/2019 3:30 AM EST [facility] Lymph # 3.0 0.6 - 4.8 x10(3)/mcL 11/06/2019 3:30 AM EST [facility] [place] # 1.0 0.0 - 1.3 x10(3)/mcL 11/06/2019 3:30 AM EST [facility] Eos# 0.1 0.0 - 0.5 x10(3)/mcL 11/06/2019 3:30 AM EST [facility] Baso # 0.1 0.0 - 0.2 x10(3)/mcL 11/06/2019 3:30 AM EST [facility] Blood VENOUS BLOOD / Unknown Venipuncture / Unknown 11/06/2019 3:24 AM EST 11/06/2019 3:28 AM EST us Alfonzo Calles MD HEMATOLOGY ORDERABLES Final Res ult [facility] [address] [facility] [place] [address] * ALCOHOL MEDICAL (11/06/2019 3:24 AM EST) Alcohol Medical <10 <=10 mg/dL 11/06/2019 3:51 AM EST [facility] Blood VENOUS BLOOD / Unknown Venipuncture / Unknown 11/06/2019 3:24 AM EST 11/06/2019 3:28 AM EST Alfonzo Calles MD CHEMISTRY ORDERABLES Final Resu lt Performing Organization Address [facility] de Phone Number [facility] [address] [place] [address] * ACETAMINOPHEN LEVEL (11/06/2019 3:24 AM EST) Acetaminophen Lvl <15.0 mcg/mL 020 3:52 AM EST [facility] Blood VENOUS BLOOD / Unknown Venipuncture / Unknown 11/06/2019 3:24 AM EST 11/06/2019 3:28 AM EST Narrative [facility] - 11/06/2019 3:52 AM EST Therapeutic: 10-30 mcg/ml Supratherapeutic: > 35 mcg/ml Toxic: > 150 mcg/ml (4h post ingestion) > 75 mcg/ml (8h post ingestion) > 40 mcg/ml (12h post ingestion) Alfonzo Calles MD CHEMISTRY ORDERABLES Final Resu lt Performing Organization Address [facility] de Phone Number [facility] [address] [place] [address] * SALICYLATE LEVEL (11/06/2019 3:24 AM EST) Salicylate <0.3 <=0.3 mg/dL 11/06/2019 3:52 AM EST [facility] Blood VENOUS BLOOD / Unknown Venipuncture / Unknown 11/06/2019 3:24 AM EST 11/06/2019 3:28 AM EST us Alfonzo Calles MD CHEMISTRY ORDERABLES Final Resu lt [facility] [address] [facility] [place] [place] [address] * (ABNORMAL) COMPREHENSIVE METABOLIC PANEL (11/06/2019 3:24 AM EST) Only the most recent of2 resultswithin the time period is included. Sodium 139 136 - 145 mmol/L 11/06/2019 3:51 AM EST [facility] Potassium 4.1 3.5 - 5.0 mmol/L 11/06/2019 3:51 AM EST [facility] Chloride 100 98 - 107 mmol/L 11/06/2019 3:51 AM EST [facility] Total CO2 24 22 - 29 mmol/L 11/06/2019 3:51 AM EST [facility] Anion Gap 15 7 - 16 mmol/L 11/06/2019 3:51 AM EST [facility] Calcium 9.7 8.4 - 10.2 mg/dL 11/06/2019 3:51 AM EST [facility] Glucose Lvl 104(H) 60 - 100 mg/dL 11/06/2019 3:51 AM EST [facility] BUN 10 5 - 18 mg/dL 11/06/2019 3:51 AM EST [facility] Creatinine 0.93 0.67 - 1.30 mg/dL 11/06/2019 3:51 AM EST [facility] Albumin 4.7(H) 3.2 - 4.5 gm/dL 11/06/2019 3:51 AM [facility] Total Protein 8.4(H) 5.7 - 8.0 gm/dL 11/06/2019 3:51 AM [facility] Bili Total 0.5 0.1 - 1.4 mg/dL 11/06/2019 3:51 AM [facility] ALT 16 <=41 IU/L 11/06/2019 3:51 AM EST [facility] AST 23 <=40 IU/L 11/06/2019 3:51 AM EST [facility] Comment:Specimen hemolyzed. Interpret with caution. Alk Phos 97 52 - 171 IU/L 11/06/2019 3:51 AM EST [facility] GFR Afr Am 11/06/2019 3:51 AM EST [facility] Comment:GFR calculation is v alid only for adults over 18. GFR Non Afr Am 11/06/2019 3:51 AM EST [facility] Comment:GFR calculation is v alid only for adults over 18. Blood VENOUS BLOOD / Unknown Venipuncture / Unknown 11/06/2019 3:24 AM EST 11/06/2019 3:28 AM EST us Alfonzo Calles MD CHEMISTRY ORDERABLES Final Resu lt Performing Organization Address City/[facility]/ZIP Co de Phone Number [facility] [address] [place] [address] * HIV AG/AB (10/18/2019 9:11 AM EST) HIV Ag/AB Non-Reactiv e Non-Reacti ve 10/18/2019 5:07 PM EST [facility] Blood VENOUS BLOOD / Unknown Venipuncture / Unknown 10/18/2019 9:11 AM EST 10/18/2019 9:11 AM EST us Ngoc Kimball APRN IMMUNOLOGY ORDERABLES Fin al Result Performing Organization Address City/[facility]/ZIP Co de Phone Number [facility] [address] [facility] , [address] [place] [id number] * TRICHOMONAS VAGINALIS BY TMA (10/18/2019 9:11 AM EST) Trichomonas vaginalis by TMA Not Detected Not Detected 10/19/2019 5:38 AM EST [facility] STRUCTURE OF URINARY TRACT PROPER / Unknown 10/18/2019 9:11 AM EST 10/18/2019 9:11 AM EST Narrative [facility] - 10/19/2019 5:38 AM EST Test methodology is boiler shop supervisor mediated amplification (TMA) using the Aptima Trichomonas vaginalis assay from [employer]. A negative result does not completely rule out a Trichomonas vaginalis infection due to potential inhibitors or levels present below the limit of detection of this assay. Results are dependent on proper collection and transport of specimen. This test is indicated for medical purposes only and should not be used for legal or forensic purposes. The assay has been cleared by the FDA to test the following specimens from symptomatic or asymptomatic women: clinician-collected endocervical swabs, clinician-collected vaginal swabs, and specimens collected in PreservCyt solution. Testing on first-catch male and female urine is not FDA-approved by this methodology; performance characteristics of the assay on these sample types were determined by [facility]. Ngoc Kimball APRN MICROBIOLOGY - GENERAL OR DERABLES Final Result Performing Organization Address [facility] Co de Phone Number [facility] [employer] [facility] [address] [facility] , [address] [place] [phone] * SYPHILIS SCREEN WITH REFLEX RPR QUANT (10/18/2019 9:11 AM EST) Pathologist [facility] Trep Ab Index 0.04 <=0.99 Index Value 10/18/2019 5:06 PM EST [employer] [facility] Comment: < 1.00 - Non-Reactive >=1.00 - Reactive NOTE: All reactive results will be reflexed to Quantitative Non-Treponemal(RPR)test. Blood Venipuncture / Unknown 10/18/2019 9:11 AM EST 10/18/2019 9:11 AM EST Ngoc Kimball APRN CHEMISTRY ORDERABLES Maye l Result Performing Organization Address [facility] Co de Phone Number [employer] [facility] [address] [facility] , [place] [address] * HEPATITIS C ANTIBODY - SCREENING (10/18/2019 9:11 AM EST) Hep C Ab Non-Reactiv e Non-Reacti ve 10/18/2019 5:07 PM EST [employer] [facility] Blood Venipuncture / Unknown 10/18/2019 9:11 AM EST 10/18/2019 9:11 AM EST Ngoc Kimball GIFT SHOP CLERK HEMATOLOGY ORDERABLES Fin al Result Performing Organization Address City/[facility]/ZIP Co de Phone Number [facility], [address] , [place] [address] * CHLAMYDIA/GC BY TMA (10/18/2019 9:11 AM EST) Only the most recent of2 resultswithin the time period is included. Chlamydia trachomatis Not Detected Not Detected 10/19/2019 4:33 AM EST [facility], [facility] Neisseria gonorrhoeae Not Detected Not Detected 10/19/2019 4:33 AM EST [facility], [facility] Urine 10/18/2019 9:11 AM EST 10/18/2019 9:11 AM EST Narrative [facility] [employer] [facility] - 10/19/2019 4:33 AM EST Testing methodology is boiler shop supervisor mediated amplification (TMA) using the Aptima Combo 2 assay from [employer]. A negative result does not completely rule out a Chlamydia trachomatis or Neisseria gonorrhoeae infection due to potential inhibitors or levels present below the limit of detection by this assay. Results are dependent on proper collection and transport of specimen. This test is indicated for medical purposes only and should not be used for legal or forensic purposes. The performance characteristics of this assay were validated by the testing laboratory. This assay is FDA cleared to test the following specimens: clinician-collected endocervical, vaginal, male urethral swab specimens, rectal swabs, and throat/pharyngeal swabs; patient collected vaginal specimens within a clinic setting; Thin Prep Specimens in PreservCyt Solution; and first-stream, unpreserved male and female urine specimens. Detailed methodology is available upon request. Ngoc Kimball APRN MICROBIOLOGY - GENERAL OR DERABLES Final Result Performing Organization Address City/[facility]/ZIP Co de Phone Number [facility] [employer] [facility] [address] [facility] [address], [place] [address] * (ABNORMAL) LIPID SCREEN (10/18/2019 9:11 AM EST) Pathologist [facility] Cholesterol 140 <=200 mg/dL 10/18/2019 3:45 PM EST [facility] Comment: < 200 Desirable 200 - 239 Borderline High >= 240 High Triglyceride 108 <=150 mg/dL 10/18/2019 3:45 PM EST [facility] Comment: < 150 Normal 150 - 199 Borderline High 200 - 499 High >= 500 Very High HDL 34(L) >=40 mg/dL 10/18/2019 3:45 PM EST [facility] Comment: > 60 Optimal 40 - 60 Acceptable < 40 Low LDL Calculated 84 <=100 mg/dL 10/18/2019 3:45 PM EST [facility] Comment: < 100 Optimal 100 - 129 Near or above optimal 130 - 159 Borderline High 160 - 189 High >= 190 Very High Non-HDL-C Calculated 106 <=129 mg/dL 10/18/2019 3:45 PM EST [facility] Comment: <130 Desirable 130-159 Above Desirable 160-189 Borderline High 190-219 High >= 220 Very High Fasting Specimen? Yes None 020 3:45 PM EST [facility] [employer] Blood Venipuncture / Unknown 10/18/2019 9:11 AM EST 10/18/2019 9:11 AM EST Ngoc Kimball GIFT SHOP CLERK CHEMISTRY ORDERABLES Maye anastasiia Result [facility] [employer] [address] [facility] , [place] [address] * MRI SHOULDER RIGHT WO CONTRAST (07/04/2019 9:18 AM EDT) Anatomical Region Laterality Modality Shoulder Magnetic Resonan ce 07/04/2019 9:18 AM EDT Impressions 07/04/2019 10:35 AM EDT Grade 2 AC joint injury with complete tear of the acromioclavicular ligament and high-grade tear of the coracoclavicular ligament with only a few intact fibers of the conoid component. - Narrative 07/04/2019 10:35 AM EDT MRI SHOULDER RIGHT WO CONTRAST 07/04/2019 9:18 AM CLINICAL HISTORY: M25.511-Pain in right [id number] COMPARISON: None TECHNIQUE: Multiplanar, multisequence MR images of the right shoulder were obtained without the use of contrast. FINDINGS: [employer] STRUCTURES: The supraspinatus, infraspinatus and subscapularis tendons are intact. The teres minor muscle and tendon are intact. The long head of the biceps tendon is intact and located within the bicipital groove. OSSEOUS STRUCTURES & ARTICULATIONS: The glenohumeral joint is congruent. There is no fracture or Hill-Sachs injury. There is no marrow infiltration. The glenohumeral chondral surfaces are intact. The glenoid labrum is intact by non-arthrographic assessment. There is no glenohumeral effusion. There is essentially near complete disruption of the acromioclavicular ligaments with surrounding subcutaneous edema and a joint effusion. In addition, there is complete disruption of the trapezoid component of the coracoclavicular ligament and high-grade disruption of the conoid component. The medial most fibers of the conoid ligament are intact. The coracoacromial ligament is intact. The acromioclavicular joint remains congruent despite the presence of ligamentous injury. Faint marrow edema is present at the head of the distal clavicle. Mild edema is present along the distal acromial apophysis, which is partially fused. No evidence of fracture. Procedure Note Devaughn Estrada MD - 07/04/2019 MRI SHOULDER RIGHT WO CONTRAST 07/04/2019 9:18 AM CLINICAL HISTORY: M25.511-Pain in right [id number] COMPARISON: None TECHNIQUE: Multiplanar, multisequence MR images of the right shoulderwere obtained without the use of contrast. FINDINGS: [employer] STRUCTURES: The supraspinatus, infraspinatusand subscapularis tendons are intact. The teres minor muscle and tendon areintact. The long head of the biceps tendon is intact and located within thebicipital groove. OSSEOUS STRUCTURES & ARTICULATIONS: The glenohumeral joint is congruent.There is no fracture or Hill-Sachs injury. There is no marrow infiltration.The glenohumeral chondral surfaces are intact. The glenoid labrum is intactby non-arthrographic assessment. There is no glenohumeral effusion. There is essentially near complete disruption of the acromioclavicularligaments with surrounding subcutaneous edema and a joint effusion. In addition,there is complete disruption of the trapezoid component of the coracoclavicularligament and high-grade disruption of the conoid component. The medial most fibersof the conoid ligament are intact. The coracoacromial ligament is intact. The acromioclavicular joint remains congruent despite the presence ofligamentous injury. Faint marrow edema is present at the head of the distal clavicle.Mild edema is present along the distal acromial apophysis, which is partiallyfused. No evidence of fracture. IMPRESSION: Grade 2 AC joint injury with complete tear of the acromioclavicularligament and high-grade tear of the coracoclavicular ligament with only a few intactfibers of the conoid component. - us Brady Mathias MD IMG MRI ORDERABLES Final Result * (ABNORMAL) WOUND CULTURE (STAIN INCLUDED) (08/20/2017 1:57 AM EST) Culture Positive Growth(A) 08/22/2017 2:31 PM EST [facility] Culture Moderate growth of Gram positive rods 08/22/2017 2:31 PM EST [facility] Comment:No further workup. Stain Abundant WBCs 08/22/2017 2:31 PM EST [facility] Stain Moderate RBCs 08/22/2017 2:31 PM EST [facility] Stain Abundant Gram positive cocci 08/22/2017 2:31 PM EST [facility] Stain Moderate Gram positive rods 08/22/2017 2:31 PM EST [facility] Stain Abundant Gram negative rods 08/22/2017 2:31 PM EST [facility] Swab ABDOMINAL WALL / Unknown 08/20/2017 1:57 AM EST 08/20/2017 2:32 AM EST us Juan Manuel Queen MD MICROBIOLOGY - GENERAL ORDERA BLES Final Result [facility] [address] [place] [address] * CT ABD PEL ED FAST W CONTRAST (08/20/2017 1:12 AM EST) Anatomical Region Laterality Modality Abdomen, Pelvis Computed Tomogra phy 08/20/2017 1:12 AM EST Impressions 08/20/2017 1:40 AM EST 1. Subcutaneous abscess in the anterior abdominal wall at the level of the umbilicus without extension into the abdominal cavity Narrative 08/20/2017 1:40 AM EST CLINICAL HISTORY: -Periumbilical abscess, Abscess vs. Strangulated hernia.. COMPARISON: None. TECHNIQUE: CT ABD PEL ED FAST W CONTRAST on 08/20/2017 1:12 AM. 100 mL of intravenous Isovue-370 was administered. FINDINGS: Abdomen: The lung bases are clear. The visualized portions of the heart are normal. There is a 3.2 x 3.2 x 3.2 cm rim-enhancing fluid collection contained within the subcutaneous fat of the anterior abdominal wall at the level of the umbilicus. There is no extension of this fluid collection into the abdominal cavity. The liver, gallbladder, spleen, pancreas, adrenal glands, and kidneys are normal. The caliber of the small bowel is normal. There are no enlarged abdominal lymph nodes or free fluid. The caliber of the abdominal aorta is normal. The spine is unremarkable. Pelvis: The caliber of the colon is normal. The appendix is unremarkable. There are no enlarged pelvic lymph nodes or free fluid. The urinary bladder and prostate gland are normal. The bony pelvis is unremarkable. Procedure Note Brady Alvarez MD - 08/20/2017 CLINICAL HISTORY: -Periumbilical abscess, Abscess vs. Strangulatedhernia.. COMPARISON: None. TECHNIQUE: CT ABD PEL ED FAST W CONTRAST on 08/20/2017 1:12 AM. 100 mL of intravenous Isovue-370 was administered. FINDINGS: Abdomen: The lung bases are clear. The visualized portions of the heartare normal. There is a 3.2 x 3.2 x 3.2 cm rim-enhancing fluid collection containedwithin the subcutaneous fat of the anterior abdominal wall at the level of the umbilicus. There is no extension of this fluid collection into theabdominal cavity. The liver, gallbladder, spleen, pancreas, adrenal glands, and kidneysare normal. The caliber of the small bowel is normal. There are no enlarged abdominal lymph nodes or free fluid. The caliber of the abdominal aortais normal. The spine is unremarkable. Pelvis: The caliber of the colon is normal. The appendix is unremarkable.There are no enlarged pelvic lymph nodes or free fluid. The urinary bladderand prostate gland are normal. The bony pelvis is unremarkable. IMPRESSION: 1. Subcutaneous abscess in the anterior abdominal wall at the level ofthe umbilicus without extension into the abdominal cavity us Juan Manuel Queen MD IMG CT ORDERABLES Final Resul t * (ABNORMAL) DIFFERENTIAL (08/19/2017 11:47 PM EST) Segs Percent 71 % 08/20/2017 12:38 AM EST [facility] Lymph Percent 20 % 08/20/2017 12:38 AM EST [facility] [place] Percent 4 % 08/20/2017 12:38 AM EST [facility] Eos Percent 1 % 08/20/2017 12:38 AM EST [facility] [employer] [facility] Baso Percent 1 % 08/20/2017 12:38 AM EST [facility] Atyp Lymph 3 <=10 % 08/20/2017 12:38 AM EST [facility] Neut # 12.1(H) 1.8 - 7.7 x10(3)/mc L 08/20/2017 12:[address] [facility] Lymph # 3.9 0.6 - 4.8 x10(3)/mc L 08/20/2017 12:38 AM EST [facility] [place] # 0.7 0.0 - 1.3 x10(3)/mc L 08/20/2017 12:38 AM EST [facility] Eos# 0.2 0.0 - 0.5 x10(3)/mc L 08/20/2017 12:38 AM EST [facility] Baso # 0.2 0.0 - 0.2 x10(3)/mc L 08/20/2017 12:38 AM EST [facility] Aniso Slight 08/20/2017 12:38 AM EST [facility] Ovalocyte Occasional 08/20/2017 12:38 AM EST [facility] Teardrop Cell Occasional 08/20/2017 12:38 AM EST [facility] Blood VENOUS BLOOD / Unknown Venipuncture / Unknown 08/19/2017 11:47 PM EST 08/19/2017 11:49 PM EST us Juan Manuel Queen MD HEMATOLOGY ORDERABLES Final R esult [facility] [address] [facility] [address] * BASIC METABOLIC PANEL (08/19/2017 11:47 PM EST) Sodium 141 136 - 145 mmol/L 08/20/2017 12:23 AM [facility] Potassium 3.8 3.5 - 5.0 mmol/L 08/20/2017 12:23 AM [facility] Chloride 100 98 - 107 mmol/L 08/20/2017 12:23 AM [facility] Total CO2 27 22 - 29 mmol/L 08/20/2017 12:23 AM [facility] Anion Gap 14 7 - 16 mmol/L 08/20/2017 12:23 AM [facility] Calcium 9.4 8.4 - 10.2 mg/dL 08/20/2017 12:23 AM [facility] Glucose Lvl 92 60 - 100 mg/dL 08/20/2017 12:23 AM [facility] BUN 14 5 - 18 mg/dL 08/20/2017 12:23 AM [facility] Creatinine 0.74 0.67 - 1.30 mg/dL 08/20/2017 12:23 AM [facility] GFR Afr Am mL/min/1.7 3 m2 08/20/2017 12:23 AM [facility] Comment:GFR calculation is v alid only for adults over 18. GFR Non Afr Am mL/min/1.7 3 m2 08/20/2017 12:23 AM [facility] Comment:GFR calculation is v alid only for adults over 18. Blood VENOUS BLOOD / Unknown Venipuncture / Unknown 08/19/2017 11:47 PM EST 08/19/2017 11:49 PM EST us Juan Manuel Queen MD CHEMISTRY ORDERABLES Final Re sult [facility] [address] [facility] [place] [address] Visit Diagnoses Diagnosis Start Date Well child check Routine or child health check 06/10/2012 Poison glenis Contact dermatitis and other eczema due to plants (except food) 06/10/2012 Scabies 09/12/2012 External otitis Infective otitis externa, unspecified 09/12/2012 Dietary counseling and surveillance Dietary surveillance and counseling 06/07/2015 Exercise counseling 06/07/2015 BMI (body mass index), pediatric, greater than or equal to 95% for age Body Mass Index, pediatric, greater than or equal to 95th percentile for age 906/07/2015 Abscess of umbilicus Cellulitis and abscess of trunk 08/19/2017 Well adolescent visit Routine infant or child health check 11/26/2017 Depression screening Screening for depression 11/26/2017 Exercise counseling 11/26/2017 Encounter for dietary counseling and surveillance 11/26/2017 Abscess of back, except buttock Cellulitis and abscess of trunk 11/26/2017 Encounter for routine child health examination without abnormal findings Routine infant or child health check 03/28/2019 Insomnia, persistent Persistent disorder of initiating or maintaining sleep 03/28/2019 History of drug use 06/13/2019 Need for vaccination Need for prophylactic vaccination and inoculation against unspecified single disease 06/13/2019 Establishing care with new doctor, encounter for 06/13/2019 Insomnia, persistent Persistent disorder of initiating or maintaining sleep 06/13/2019 Acute pain of right shoulder 07/04/2019 Sinobronchitis Unspecified sinusitis (chronic) 07/12/2019 History of drug use 10/18/2019 Exposure to STD Contact with or exposure to venereal diseases 10/18/2019 H/O elevated lipids Personal history of other endocrine, metabolic, and immunity disorders 10/18/2019 Need for hepatitis C screening test Special screening examination for other specified viral diseases 10/18/2019 Screening for diabetes mellitus 10/18/2019 Personal history of nicotine dependence Personal history of tobacco use, presenting hazards to health 10/18/2019 Insomnia, persistent Persistent disorder of initiating or maintaining sleep 10/18/2019 Screening for deficiency anemia Screening for other and unspecified deficiency anemia 10/18/2019 Moderate major depression (HCC) Major depressive disorder, single episode, moderate 10/30/2019 Generalized anxiety disorder 10/30/2019 Methamphetamine abuse (HCC) Nondependent amphetamine or related acting sympathomimetic abuse, unspecified 11/06/2019 Deliberate self-cutting Unspecified nonpsychotic mental disorder 11/06/2019 Moderate major depression (HCC) Major depressive disorder, single episode, moderate 11/07/2019 History of drug use 11/07/2019 Paranoia (HCC) Delusional disorder 11/07/2019 Insomnia, persistent Persistent disorder of initiating or maintaining sleep 11/17/2019 Dislocation of right acromioclavicular joint with greater than 200% displacement, initial encounter 11/22/2019 Acute bacterial sinusitis Acute sinusitis, unspecified 11/30/2019 Generalized anxiety disorder 01/05/2020 Moderate major depression (HCC) Major depressive disorder, single episode, moderate 01/05/2020 Paranoia (HCC) Delusional disorder 01/05/2020 Umbilical hernia without obstruction and without gangrene 03/06/2020 Umbilical hernia without obstruction and without gangrene 03/06/2020 Sebaceous cyst 03/06/2020 Annual physical exam Routine general medical examination at a health care facility 07/21/2024 Dental caries Unspecified dental caries 07/21/2024 Annual physical exam Routine general medical examination at a health care facility 10/09/2024 Chronic right shoulder pain Pain in joint, shoulder region 10/09/2024 Gastroesophageal reflux disease, unspecified whether esophagitis present 10/09/2024 Right shoulder pain, unspecified chronicity 10/31/2024 Right shoulder pain, unspecified chronicity 10/31/2024 Pain from implanted hardware, initial encounter 10/31/2024 Right shoulder pain, unspecified chronicity 11/01/2024 Chest pain, unspecified type 11/15/2024 SOB (shortness of breath) Shortness of breath 11/15/2024 Goals Goal Patient Goal Type Associated Problems Recent Progress Patient-Stated? Author Maintain a healthy diet, exercise regularly and maintain an ideal body weight General No Neisha Field RMA Stay Tobacco Free Lifestyle No Stephanie Heller RMA Care Teams [employer] Equipment [employer] Relationship Specialty Start Date End Date Faraz Shannon DO [address] [place] [address] PCP - General Family Medicine 07/21/24
[2025-04-10 16:55] VITALS: BP 130/80; PULSE 98; RESP 17; TEMP 36.8; O2SAT 100; BMI 25.5
--- NOTE | 2025-04-10 17:16 | ED_ITS ---
Discharge Plan Disposition Patient Disposition: Home, Self-Care Condition: Good Prescriptions Prescriptions: New prednisone 10 mg tablet 10 mg PO DAILY Qty: 42 0RF Rx Instructions: Please take 40 mg day 1-7, 30 mg day 8-9, 20 mg day 10-12, 10 mg day 13-14 No Action cyclobenzaprine 10 mg Tablet 10 mg PO BID PRN (Reason: Muscle Spasm) Qty: 20 0RF ibuprofen [IBU] 800 mg tablet 800 mg PO Q8HP PRN (Reason: Moderate Pain) Qty: 30 0RF Referrals Follow up/Referrals: Faraz Shannon [Primary Care Provider, Medical] - See instructions Activity Restrictions/Add. Instructions Additional Instructions/Restrictions: Please take 40 mg of prednisone days 1-7, then 30 mg of prednisone days 8-9, 20 mg of prednisone on days 10-12, and 10 mg of prednisone day 13-14. You can take Zyrtec or Benadryl over the counter for itching. Clinical Impressions Clinical Impression: Allergic dermatitis due to poison chairty Instructions Patient Instructions: Contact Dermatitis Print Language Print Language: [place]i Discharge ED Provider: Dean Ambriz General Adult HPI General Chief complaint: Skin/Abscess/Foreign Body Stated complaint: Poison Charity Time Seen by Provider: 04/10/25 16:43 Mode of Arrival: Ambulatory Source of Information: Patient Description of Symptoms (Recalled from ER Triage Doc. by RN): Patient states that he has been having poison charity on his neck and arms for 3-4 days History of Present Illness HPI narrative: This is a 20-year-old male patient who is presenting to the emergency department today for evaluation of poison charity exposure. 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 He states that since onset of symptoms this poison charity has begun to spread up his arms and encroach towards the hands. He has also had the spread on his neck and head. No open wounds. There is some vesicle formation reported by the patient Related Data Previous Rx's ?Medication ?Instructions ?Recorded cyclobenzaprine 10 mg tablet 10 mg PO BID PRN Muscle S pasm #20 09/28/24 tabs ibuprofen 800 mg tablet (IBU) 800 mg PO Q8HP PRN Moder ate Pain 09/28/24 #30 tabs prednisone 10 mg tablet 10 mg PO DAILY #42 tabs 07/25 Allergies Allergy/AdvReac Type Severity Reaction Status Date / Time No Known Allergies Allergy Verified 09/28/24 14:46 [facility] Disclaimer: The information contained in this section may have been updated after the patient was seen, as this information can be updated by other users. Social History (Updated 09/28/24 @ 20:29 by Angel Gonzales APRN) Smoking Status: Current every day smoker alcohol intake: never current occupational status: employed Travel in the last 8 weeks?: None Have you lived/traveled outside [place] in past 30 days?: No Contact w/someone who lives/traveled outside [place] past 30 days?: No Exposure to someone with infectious disease in past 14 days?: No Do you have a fever (greater than 100.4 F or 38 C)?: No Have you tested positive for COVID-19?: No Exposed to someone with COVID-19 in past 14 days?: No Do you have a sore throat?: No Do you have a cough?: No Do you have any weakness?: No Do you have any diarrhea?: No Are you experiencing any unusual bleeding?: No Do you have any muscle aches/pain?: No Do you have any abdominal pain?: No Are you experiencing loss of taste or smell?: No ROS Obtained: Yes Systems reviewed as appropriate & no additional complaints except as documented Physical Exam General General appearance: alert and in no apparent distress Head Head exam: atraumatic and normocephalic Eye Eye exam: Present PERRL and EOMI ENT ENT exam: Present normal oropharynx and mucous membranes moist Neck Neck exam: Present full ROM and trachea midline Respiratory Respiratory exam: Present normal lung sounds bilaterally; Absent respiratory distress Cardiovascular Cardiovascular exam: Present regular rate and normal rhythm Abdominal Exam Abdominal exam: Present soft; Absent tenderness Extremities Exam Extremities exam: Present normal inspection; Absent tenderness Back Exam Back exam: Absent vertebral tenderness Neurological Exam Neurological exam: Present alert and oriented X3 Skin Skin exam: Present warm, dry and rash Medical Decision Making Medical Records Medical records reviewed: Yes I reviewed the patient's medical records. Screening: Per USPSTF and CDC recommendations, given the prevalence of disease in our region, it is our hospital?s policy to screen for HIV and viral Hepatitis for all patients aged 18 and over and those with ongoing risk factors. Armen Inquiry Pt receiving controlled substance: No Armen was queried for this patient: No Vital Signs: 04/10/25 16:55 Temperature 98.2 F Temperature Source Oral Pulse Rate [Left Brachial] 98 H Respiratory Rate 17 Blood Pressure [Left Arm] 130/80 Blood Pressure Mean [Left Arm] 96 Blood Pressure Source [Left Arm] Automatic Cuff Blood Pressure Position [Left Arm] Sitting 02 Sat by Pulse Oximetry 100 Oxygen Delivery Method Room Air Medical Decision Narrative: This is a 20-year-old male patient who is presenting to the emergency department today for poison charity exposure. Patient does not have any comorbidities that would complicate his medical management or care. On initial evaluation of the patient they were resting comfortably in no acute distress and nontoxic in appearance. They are hemodynamically stable, saturating well room air, and are neurologically intact. On physical examination of the patient he does have poison charity dermatitis that is present on his bilateral upper extremities with encroachment of this rash towards the hand. There is some vesicle formation. He also has this rash on the posterior aspect of the neck extending upwards into the scalp. Differential diagnosis includes allergic dermatitis, contact dermatitis, urshiol dermatitis, among others. Patient did not necessitate any emergent medications or interventions while in the emergency department. Given the spread of his poison charity on his upper extremities that have worsened over the course of the last 3 to 4 days as well as the involvement of his posterior neck and scalp we will treat this as severe dermatitis. We will do a 2-week taper of prednisone. I have relayed this plan to the patient and he acknowledges understanding. At this time all questions have been answered and all parties are agreeable with the decision to discharge home Critical Care Critical Care Time Critical Care Time: No
[2025-04-10 17:25] VITALS: BP 130/80; PULSE 98; RESP 17; TEMP 36.8; O2SAT 100
== END 2025-04-10 17:26 | disposition home or self-care (01) ==
PROVIDERS: Emergency Provider Student in an Organized Health Care Education/Training Program; PCP Family Medicine
DX: L23.7 Allergic contact dermatitis due to plants, except food (principal)
CPT/HCPCS: 99283